=== PATIENT | female | born 1950 | race Caucasian/White ===

== ENCOUNTER 2024-12-23 21:33 | Observation (INO) | payer MEDICARE ==
[~2024-12-23] VITALS: Ht 160 cm; Wt 87.5 kg
[2024-12-23 21:35] VITALS: TEMP 98.8
[2024-12-23] MEDS ORDERED: ACETAMINOPHEN 325 MG TAB PO STA (22:01)
[2024-12-23 22:16] LABS: BASOPHILS % 0.1 % (0.0-1.0); EOSINOPHILS # (AUTO) 0.1 (0.0-0.4); EOSINOPHILS % 1.1 % (0.0-6.0); HEMATOCRIT 42.9 % (34.2-44.1); HEMOGLOBIN 13.9 g/dL (12.0-16.0); LYMPHOCYTES # (AUTO) 1.3 (1.0-3.2); LYMPHOCYTES % 15.8 % (18.0-39.1); MEAN CORPUSCULAR HEMOGLOBIN 29.8 pg (28-32); MEAN CORPUSCULAR HGB CONC 32.4 g/dL (31-35); MEAN CORPUSCULAR VOLUME 92.1 fL (81-99); MONOCYTES # (AUTO) 0.3 (0.2-0.8); MONOCYTES % 3.5 % (4.4-11.3); NEUTROPHILS # (AUTO) 6.3 (2.1-6.9); NEUTROPHILS % 78.3 % (38.7-80.0); PLATELET COUNT 282 x10e3/uL (140-360); RED BLOOD COUNT 4.66 x10e6/uL (3.6-5.1); WHITE BLOOD COUNT 8.04 x10e3/uL (4.8-10.8)
[2024-12-23] MEDS: SODIUM CHLORIDE 0.9% 1000ML 1,000 ML IV STA (22:30)
[2024-12-23 22:32] LABS: ALANINE AMINOTRANSFERASE 11 IU/L (0-55); ALBUMIN 3.6 g/dL (3.5-5.0); ALBUMIN/GLOBULIN RATIO 1.2 (0.8-2.0); ALKALINE PHOSPHATASE 61 IU/L (40-150); ANION GAP 14.9 mmol/L (8-16); BILIRUBIN,TOTAL 0.7 mg/dL (0.2-1.2); BLOOD UREA NITROGEN 14 mg/dL (7-26); BUN/CREATININE RATIO 16 (6-25); CALCIUM 9.1 mg/dL (8.4-10.2); CARBON DIOXIDE 26 mmol/L (22-29); CHLORIDE 101 mmol/L (98-107); CREATINE KINASE 75 IU/L (29-168); CREATININE, SERUM 0.89 mg/dL (0.57-1.11); EST GLOMERULAR FILTRATION RATE 68 ML/MIN (>=60); GLUCOSE 342 mg/dL (74-118); POTASSIUM 3.9 mmol/L (3.5-5.1); SODIUM 138 mmol/L (136-145); TOTAL PROTEIN 6.7 g/dL (6.5-8.1)
[2024-12-23 22:35] LABS: CORONAVIRUS COVID-19 AG NEGATIVE (NEGATIVE); INFLUENZA A AG NEGATIVE (NEGATIVE); INFLUENZA B AG NEGATIVE (NEGATIVE)
[2024-12-23 22:43] LABS: TROPONIN I < 0.001 ng/mL (0-0.300)
[2024-12-23] MEDS: ASPIRIN 81 MG CHEW TAB PO ONE (23:43)
[2024-12-24] VITALS (11 sets, daily range): BP systolic 102–125; BP diastolic 49–68; PULSE 60–98; RESP 18–22; TEMP 97.7–98.1; O2SAT 94–98
[2024-12-24] MEDS ORDERED: IOPAMIDOL 370 MG/ML 100 ML INFUS..BTL INJ ONE (00:03)
[2024-12-24] MEDS ORDERED: Morphine 2mg Syringe 2 MG/ML SYR IV PRN (00:30)
[2024-12-24] MEDS ORDERED: ONDANSETRON HCL INJ 2MG/ML 2ML 2 MG/ML VIAL IV PRN (00:30)
[2024-12-24] MEDS: SODIUM CHLORIDE 0.9% 1000ML 1,000 ML IV SCH (01:48)
[2024-12-24] MEDS ORDERED: ALBUTEROL/IPRATROPIUM 3 ML NEB NEB PRN (08:45)
[2024-12-24] MEDS ORDERED: SODIUM CHLORIDE 0.9% 250ML 250 ML ONE (09:06)
[2024-12-24] MEDS ORDERED: GLIPIZIDE5 MG PO (10:34)
[2024-12-24] MEDS ORDERED: CETIRIZINE HCL10 MG PO (10:34)
[2024-12-24] MEDS ORDERED: SIMVASTATIN20 MG PO (10:34)
[2024-12-24] MEDS ORDERED: METFORMIN HCL500 MG PO (10:34)
[2024-12-24] MEDS ORDERED: LEVOTHYROXINE50 MCG PO (10:34)
[2024-12-24 11:20] LABS: TROPONIN I 0.004 ng/mL (0-0.300)
[2024-12-24] MEDS: FLUTICASONE PROPIONATE NASAL SPRAY NS SCH (12:12)
[2024-12-24] MEDS ORDERED: DEXTROSE 50% SYRINGE 50 ML IV PRN (14:15)
[2024-12-24] MEDS: INSULIN REGULAR, HUMAN 100 UNIT/1 ML SQ SCH (16:53)
[2024-12-25] VITALS (7 sets, daily range): BP systolic 117–142; BP diastolic 52–70; PULSE 70–91; RESP 17–20; TEMP 97.8–98.6; O2SAT 95–97
[2024-12-25 05:01] LABS: BASOPHILS % 0.3 % (0.0-1.0); EOSINOPHILS # (AUTO) 0.6 (0.0-0.4); EOSINOPHILS % 7.5 % (0.0-6.0); HEMATOCRIT 36.5 % (34.2-44.1); HEMOGLOBIN 11.9 g/dL (12.0-16.0); LYMPHOCYTES # (AUTO) 1.6 (1.0-3.2); LYMPHOCYTES % 21.3 % (18.0-39.1); MEAN CORPUSCULAR HEMOGLOBIN 30.3 pg (28-32); MEAN CORPUSCULAR HGB CONC 32.6 g/dL (31-35); MEAN CORPUSCULAR VOLUME 92.9 fL (81-99); MONOCYTES # (AUTO) 0.4 (0.2-0.8); NEUTROPHILS # (AUTO) 4.8 (2.1-6.9); NEUTROPHILS % 64.6 % (38.7-80.0); PLATELET COUNT 236 x10e3/uL (140-360); RED BLOOD COUNT 3.93 x10e6/uL (3.6-5.1); RED CELL DISTRIBUTION WIDTH 13.2 % (11.7-14.4); WHITE BLOOD COUNT 7.37 x10e3/uL (4.8-10.8)
[2024-12-25 06:54] LABS: POTASSIUM 3.9 mmol/L (3.5-5.1)
[2024-12-25 07:22] LABS: ALBUMIN 3.3 g/dL (3.5-5.0); ALBUMIN/GLOBULIN RATIO 1.3 (0.8-2.0); ANION GAP 13.9 mmol/L (8-16); BILIRUBIN,TOTAL 0.5 mg/dL (0.2-1.2); CALCIUM 8.5 mg/dL (8.4-10.2); CREATININE, SERUM 0.79 mg/dL (0.57-1.11); TOTAL PROTEIN 5.9 g/dL (6.5-8.1)
[2024-12-25 08:05] LABS: CREATINE KINASE 69 IU/L (29-168)
[2024-12-25 08:15] LABS: TROPONIN I < 0.001 ng/mL (0-0.300)
[2024-12-25] MEDS ORDERED: CEFUROXIME250 MG PO (15:19)
[2024-12-25] MEDS ORDERED: MUCINEX DM ER1 EACH PO (15:19)
[2024-12-25] MEDS ORDERED: ZITHROMAX500 MG PO (15:19)
[2024-12-25] MEDS ORDERED: VENTOLIN HFA18 GM INH (15:19)
[2024-12-26] MEDS ORDERED: AZITHROMYCIN 250 MG TAB PO SCH (12:00)
== END 2024-12-25 16:35 | disposition home or self-care (01) ==
LOC: ER 21:42 → ERHOLD 12-24 00:21 → MED/SURG2 12-24 01:54
PROVIDERS: ADMIT Internal Medicine; ATTEND Internal Medicine
DX: J20.9 Acute bronchitis, unspecified (principal); E11.9 Type 2 diabetes mellitus without complications; Z79.84 Long term (current) use of oral hypoglycemic drugs; E03.9 Hypothyroidism, unspecified; R09.02 Hypoxemia; I10 Essential (primary) hypertension; E78.5 Hyperlipidemia, unspecified; Z79.899 Other long term (current) drug therapy
CPT/HCPCS: 36415 ×3; 71045; 71260; 80053 ×2; 82550 ×3; 82948 ×2; 83518; 83605; 83690; 83880; 84484 ×3; 85025 ×2; 87040; 87070; 87086; 87205; 87428; 93005; 94799 ×2; 96372; 99284; G0378 ×2; J0456 ×2; J2543 ×2; J7030 ×2; J7050 ×2; Q9967